=== PATIENT | female | born 1980 ===

== ENCOUNTER 2019-09-11 06:55 | Inpatient (IN) ==
[2019-09-11] MEDS ORDERED: LACTATED RINGERS 500 ML IV PRN (07:30)
[2019-09-11] MEDS ORDERED: MEPERIDINE 50 MG/1 ML VIAL IV PRN (07:30)
[2019-09-11] MEDS ORDERED: LACTATED RINGERS 1,000 ML IV SCH (07:30)
[2019-09-11] MEDS ORDERED: BUTORPHANOL 2 MG/ML VIAL IV PRN (07:30)
[2019-09-11] MEDS ORDERED: ONDANSETRON 4 MG/2 ML VIAL IV PRN (07:30)
[2019-09-11 07:53] LABS: Basophils % 0.4 % (0.0-0.8); Eosinophils # 0.2 10*3/uL (0.0-0.87); Eosinophils % 2.3 % (0.00-10.9); Hematocrit 39.4 VOL% (35.7-47.0); Hemoglobin 13.3 GM/DL (12.0-16.0); Immature Granulocytes % 0.7 %; Immature Granulocytes Absolute 0.05 #; Lymphocytes # 1.5 10*3/uL (1.4-4.0); Lymphocytes % 21.3 % (21.3-54.2); Mean Corpuscular HGB Conc 33.8 GM/DL (32-36); Mean Corpuscular Volume 94.5 FL (87-102); Mean Platelet Volume 10.8 FL (9.6-12.0); Neutrophils % 64.3 % (38.7-73.9); Platelet Count 188 T/CUMM (130-400); Red Blood Count 4.17 MC/CUMM (3.8-5.5); Red Cell Distribution Width 12.6 % (9.3-17.3)
[2019-09-11] MEDS ORDERED: OXYTOCIN/LR 20 UNIT/1,000 ML BAG IV SCH (08:30)
[2019-09-11] MEDS ORDERED: LACTATED RINGERS 1,000 ML IV ONE (11:01)
[2019-09-11] MEDS ORDERED: ePHEDrine 50 MG/ML AMP IV PRN (11:01)
[2019-09-11] MEDS ORDERED: diphenhydrAMINE 50 MG/1 ML VIAL IV PRN ×2 (11:01)
[2019-09-11] MEDS ORDERED: CITRIC ACID/SODIUM CITRATE 30 ML UDCUP PO ONE (11:01)
[2019-09-11] MEDS ORDERED: NALOXONE 0.4 MG/ML VIAL IV PRN (11:01)
[2019-09-11] MEDS ORDERED: FAMOTIDINE 20 MG/2 ML VIAL IV ONE (11:01)
[2019-09-11] MEDS ORDERED: fentaNYL 2 MCG/ROPIV 0.2% EPID 100 ML EPIDURAL SCH (11:30)
[2019-09-11 14:11] LABS: Apearance,Urine CLEAR (Clear); Bacteria,Urine Occasional /HPF (Few); Bilirubin,Urine Negative (Negative); Blood, Urine Negative (Negative); Glucose,Urine (UA) 50 mg/dL (Negative); Ketones,Urine Negative (Negative); Nitrite,Urine Negative (Negative); Protein,Urine Negative; RBC,Urine <1 /HPF (0-4); Urine Color Straw (Yellow); Urine Specific Gravity 1.003 (1.001-1.035); Urine Urobilinogen < 2.0 EU/DL (0.2-1.0); WBC,Urine <1 /HPF (0-6)
[2019-09-11] MEDS ORDERED: OXYTOCIN/LR 0 UNIT/0 ML BAG IV ONE (14:48)
[2019-09-11] MEDS ORDERED: miSOPROStoL 200 MCG TABLET ONE (14:48)
[2019-09-11] MEDS ORDERED: TRANEXAMIC ACID 1,000 MG/10 ML VIAL ONE (14:48)
[2019-09-11] MEDS ORDERED: METHYLERGONOVINE 0.2 MG/1 ML AMP ONE (14:49)
[2019-09-11] MEDS ORDERED: CARBOPROST TROMETHAMINE 250 MCG/ML AMP IM ONE (14:49)
[2019-09-11] MEDS ORDERED: HYDROCORTISONE 2.5% RECTAL CREAM 30 GM TUBE TOP PRN (17:00)
[2019-09-11] MEDS ORDERED: DIPH/TET/ACEL PERT BOOSTER VACCINE 0.5 ML VIAL IM ONE (17:19)
[2019-09-11] MEDS ORDERED: MEASLES/MUMPS/RUBELLA VACCINE 0.5 ML VIAL SUBCUT ONE (17:19)
[2019-09-11] MEDS ORDERED: ACETAMINOPHEN 325 MG TABLET PO PRN (17:19)
[2019-09-11] MEDS ORDERED: RHO(D) IMMUNE GLOBULIN 300 MCG SYRINGE IM ONE (17:19)
[2019-09-11] MEDS ORDERED: LANOLIN 50% CREAM 0.3 OZ TUBE TOP PRN (18:00)
[2019-09-11] MEDS: BENZOCAINE 20%/MENTHOL 0.5% SPRAY 56 GM CAN TOP PRN (20:20)
[2019-09-11] MEDS: IBUPROFEN 800 MG TABLET PO PRN (20:20)
[2019-09-11] MEDS: DOCUSATE SODIUM 100 MG CAPSULE PO SCH (20:20)
[2019-09-11] MEDS: WITCH HAZEL PADS 100/JAR TOP PRN (20:20)
[2019-09-12] MEDS: IBUPROFEN 800 MG TABLET PO PRN ×3 (03:56→19:45)
[2019-09-12 06:16] LABS: Basophils # 0.1 10*3/uL (0.0-0.2); Basophils % 0.4 % (0.0-0.8); Eosinophils # 0.2 10*3/uL (0.0-0.87); Eosinophils % 1.8 % (0.00-10.9); Hematocrit 35.4 VOL% (35.7-47.0); Immature Granulocytes % 0.5 %; Immature Granulocytes Absolute 0.06 #; Lymphocytes # 2.1 10*3/uL (1.4-4.0); Mean Corpuscular HGB Conc 33.9 GM/DL (32-36); Mean Corpuscular Volume 94.7 FL (87-102); Mean Platelet Volume 10.6 FL (9.6-12.0); Monocytes % 7.3 % (1.7-12.7); Platelet Count 170 T/CUMM (130-400); Red Blood Count 3.74 MC/CUMM (3.8-5.5); Red Cell Distribution Width 12.6 % (9.3-17.3); White Blood Count 12.4 T/CUMM (4-12)
[2019-09-12] MEDS: DOCUSATE SODIUM 100 MG CAPSULE PO SCH ×2 (08:12→19:45)
[2019-09-12] MEDS ORDERED: BISACODYL 10 MG SUPP RECTAL PRN (09:00)
[2019-09-13] MEDS: DOCUSATE SODIUM 100 MG CAPSULE PO SCH ×2 (00:22→08:25)
[2019-09-13] MEDS: BENZOCAINE 20%/MENTHOL 0.5% SPRAY 56 GM CAN TOP PRN (08:25)
[2019-09-13] MEDS: WITCH HAZEL PADS 100/JAR TOP PRN (08:25)
[2019-09-13 09:32] VITALS: BP 119/68
[2019-09-13] MEDS: IBUPROFEN 800 MG TABLET PO PRN (10:26)
[2019-09-14 13:16] LABS: Toxoplasma IgG Value < 3 IU/mL
== END 2019-09-13 12:50 | disposition home or self-care (01) | DRG 807 ==
LOC: N.LDOUT 06:55 → N.LD 06:56 → N.OB 18:04
PROVIDERS: ADMIT Obstetrics & Gynecology; ATTEND Obstetrics & Gynecology